=== PATIENT | male | born 1965 | race Caucasian/White ===

== ENCOUNTER 2024-01-05 13:00 | Day surgery (SDC) | payer OTHER, SELFPAY ==
[2024-01-04 21:47] VITALS: BP 120/70
[2024-01-04 22:10] LABS: % Basophils 0.6 % (0-2); % Eosinophils 3.5 % (0-6); % Immature Granulocytes 0.4 % (0-0.5); % Lymphocytes 20.6 % (20.5-51.1); % Monocytes 8.8 % (1.7-9.3); % Neutrophils 66.1 % (42.2-75.2); Absolute Basophils 0.1 10^3/uL (0-0.2); Absolute Eosinophils 0.5 10^3/uL (0-0.7); Absolute Immature Granulocytes 0.1 10^3/uL (0-0.05); Absolute Lymphocytes 2.9 10^3/uL (1.2-3.4); Absolute Monocytes 1.2 10^3/uL (0.1-0.6); Absolute Neutrophils 9.2 10^3/uL (1.4-6.5); Hematocrit 40.6 % (39.0-52.0); Hemoglobin 14.1 g/dL (13.0-18.0); Mean Corp Hgb Conc. 34.7 g/dL (33.0-37.0); Mean Corpuscular Hgb 30.3 pg (27.0-31.0); Mean Corpuscular Volume 87.1 fL (80.0-94.0); Mean Platelet Volume 10.2 fL (7.4-10.4); Nucleated Red Blood Cells % 0 % (-); Platelet Count 203 10^3/uL (130-400); Red Blood Cell Count 4.66 10^6/uL (4.70-6.10); Red Cell Dist. Width 12.9 % (11.5-14.5); White Blood Cell Count 13.9 10^3/uL (4.8-10.8)
[2024-01-04 22:17] LABS: Urine Albumin Negative (Neg - Trace); Urine Bilirubin Negative (Negative); Urine Character Clear (Clear); Urine Color Yellow; Urine Glucose Negative (Negative); Urine Ketone Negative (Negative); Urine Leukocyte Negative (Negative); Urine Nitrite Negative (Negative); Urine Occult Blood 2+ (Negative); Urine Specific Gravity 1.025 (<1.030); Urine Urobilinogen Negative (Neg - 1+)
[2024-01-04 22:30] LABS: ALT (SGPT) 18 U/L (0-50); AST (SGOT) 22 U/L (17-59); Albumin 4.4 g/dl (3.5-5.0); Alkaline Phosphatase 57 U/L (38-126); Blood Urea Nitrogen 27 mg/dl (9-20); Calcium 9.6 mg/dl (8.4-10.2); Carbon Dioxide 27 mmol/L (22-30); Chloride 104 mmol/L (98-107); Glucose 114 mg/dl (70-99); Lipase 278 U/L (23-300); Potassium 4.2 mmol/L (3.5-5.1); Sodium 140 mmol/L (135-145); Total Bilirubin 0.4 mg/dl (0.2-1.3); Total Protein 7.5 g/dl (6.3-8.2); eGFR > 60.00
[2024-01-04 22:50] LABS: Urine White Cell 0-2 /HPF (0-5)
--- NOTE | 2024-01-04 22:57 | ED.GENMED ---
History of Present Illness
<MAZIN Lopez - Last Filed: 01/04/24 23:20>
General
Chief Complaint: Abdominal Pain
Source: patient and records
Exam Limitations: none
Time Seen by Provider: 01/04/24 22:47
Travel History
Have you had any contact with someone who has COVID-19?: No
Do you have any symptoms of coronavirus? Fever > 100 degrees, chills, cough, shortness of breath, sore throat, loss of taste or smell, muscle aches, or headache?: No
History of Present Illness
History of Present Illness:
58 yea rold male with hx of HLD, sleep apnea, SBO, s/p gastric sleeve 10/05 who presents with sudden onset of RUQ abdominal pain that began today at 1900. Pt states he had his usual nighttime snack of doritos, cheetos, avocado when he had sudden
onset of tightening, squeezing, nonradiating pain. Pain has been waxing and waning and is currently at 6/10. Reports deep breaths exacerbate the pain. States he has not felt this pain before and feels different from his SBO pain in the past. Has not
taken anything for the pain. States he has been stooling fine with hard formed stool since his gastric sleeve surgery. He will use miralax every other day to help him. He takes Ursodiol s/p gastric sleeve surgery. Denies n/v/d, fevers/chills, chest
pain, SOB, flank pain, dysuria, hematuria. No recent travel. No sick contacts. Denies tobacco, etoh, or illicit drug use.
Past History
<MAZIN Lopez - Last Filed: 01/04/24 23:20>
Past History
ED Past Medical History: HTN, Hypercholesterolemia and Other (SBO)
Social History
Tobacco: Former smoker
Alcohol: Occasional
Drug: None
Personal:
Living: with family
Employment: Employed
Family History
Family History: Hypertension
Review of Systems
<MAZIN Lopez - Last Filed: 01/04/24 23:20>
Review of Systems
Allergies reviewed?: Yes
All Other Systems: ROS reviewed and negative except as documented in HPI and ROS
Constitutional: Reports no symptoms
EENT: Reports no symptoms
Respiratory: Reports no symptoms
Cardiac: Reports no symptoms
ABD/GI: Reports abdominal pain
: Reports no symptoms
Musculoskeletal: Reports no symptoms
Skin: Reports no symptoms
Neurological: Reports no symptoms
Phy Exam
<MAZIN Lopez - Last Filed: 01/04/24 23:20>
General Physical Exam
General Presentation: well appearing and no apparent distress
General age: appears stated age
General Skin: warm and dry
General Habitus: obese
General Mental: alert
General Hydration: appears well hydrated
Pulmonary Exam
Pulmonary Exam: lungs clear, no respiratory distress, no rales, no crackles, no rhonchi, no wheezing and no cough
Gastrointestinal Exam
Gastrointestinal Exam: normal bowel sounds, soft, no pulsatile mass and non distended
Palpation: right upper quadrant: Moderate tenderness
Neurological Exam
Neurological Exam: alert and oriented x3
Musculoskeletal Exam
Musculoskeletal Exam: no edema
Skin Exam
Skin Exam: normal color and warm/dry
Psychiatric Exam
Psychiatric Exam: normal mood/affect
Course
<MAZIN Lopez - Last Filed: 01/04/24 23:20>
Orders/Labs/Results
Orders:
Orders
01/04/24 22:01
Complete Blood Count/With Diff Urgent
Comprehensive Metabolic Panel Urgent
Lipase Urgent
UA Reflex to Culture [Urinalysis Reflex To Culture] Urgent
Date Specimen was Collected: 01/04/24
Time Specimen was Collected: 21:59
Urine Microscopic Reflex Cult Urgent
01/04/24 23:17
0.9% Sodium Chloride 1000 ml [Nss] 1,000 ml IV BOLUS
HYDROmorphone [Dilaudid] 1 mg IV NOW STA
01/05/24 00:00
CT Abd/pelvis W Iv Cont Urgent
Reason For Exam: acute RUQ to RLQ pain
Abnormal Lab Results
01/04/24
22:01
WBC 13.9 H 10^3/uL
(4.8-10.8)
RBC 4.66 L 10^6/uL
(4.70-6.10)
Abs Immat Gran (auto) 0.1 H 10^3/uL
(0-0.05)
Absolute Neuts (auto) 9.2 H 10^3/uL
(1.4-6.5)
Absolute Monos (auto) 1.2 H 10^3/uL
(0.1-0.6)
BUN 27 H mg/dl
(9-20)
Glucose 114 H mg/dl
(70-99)
Ur Occult Blood Reflex 2+ A
(Negative)
Urine RBC 7-10 A /HPF
(0-2)
01/04/24 22:01
01/04/24 22:01
Vital Signs
Initial and Last Documented VS:
Initial Vital Signs
Temp Pulse Resp BP Pulse Ox
98.2 F 70 24 120/70 97
01/04/24 21:47 01/04/24 21:47 01/04/24 21:47 01/04/24 21:47 01/04/24 21:47
Last Documented Vital Signs
Temp Pulse Resp BP Pulse Ox
98.2 F 70 24 120/70 97
01/04/24 21:47 01/04/24 21:47 01/04/24 21:47 01/04/24 21:47 01/04/24 21:47
<Nehal Pimentel, DO - Last Filed: 01/05/24 01:11>
Orders/Labs/Results
Orders:
Orders
01/04/24 22:01
Complete Blood Count/With Diff Urgent
Comprehensive Metabolic Panel Urgent
Lipase Urgent
UA Reflex to Culture [Urinalysis Reflex To Culture] Urgent
Date Specimen was Collected: 01/04/24
Time Specimen was Collected: 21:59
Urine Microscopic Reflex Cult Urgent
01/04/24 23:17
0.9% Sodium Chloride 1000 ml [Nss] 1,000 ml IV BOLUS
HYDROmorphone [Dilaudid] 1 mg IV NOW STA
01/05/24 00:00
CT Abd/pelvis W Iv Cont Urgent
Reason For Exam: acute RUQ to RLQ pain
Abnormal Lab Results
01/04/24
22:01
WBC 13.9 H 10^3/uL
(4.8-10.8)
RBC 4.66 L 10^6/uL
(4.70-6.10)
Abs Immat Gran (auto) 0.1 H 10^3/uL
(0-0.05)
Absolute Neuts (auto) 9.2 H 10^3/uL
(1.4-6.5)
Absolute Monos (auto) 1.2 H 10^3/uL
(0.1-0.6)
BUN 27 H mg/dl
(9-20)
Glucose 114 H mg/dl
(70-99)
Ur Occult Blood Reflex 2+ A
(Negative)
Urine RBC 7-10 A /HPF
(0-2)
01/04/24 22:01
01/04/24 22:01
Vital Signs
Initial and Last Documented VS:
Initial Vital Signs
Temp Pulse Resp BP Pulse Ox
98.2 F 70 24 120/70 97
01/04/24 21:47 01/04/24 21:47 01/04/24 21:47 01/04/24 21:47 01/04/24 21:47
Last Documented Vital Signs
Temp Pulse Resp BP Pulse Ox
98.2 F 70 24 120/70 97
01/04/24 21:47 01/04/24 21:47 01/04/24 21:47 01/04/24 21:47 01/04/24 21:47
<MAZIN Lopez - Last Filed: 01/04/24 23:20>
MDM/Problems Addressed
Differential Diagnosis Includes:
biliary colic, acute cholecystitis, acute appendicitis, nephrolithiasis
MDM/Problems Addressed:
58 year old male who presents with sudden onset of RUQ abdominal pain that began at 1900 today.
Chronic conditions affecting care: HTN and Other (HLD)
<MAZIN Lopez - Last Filed: 01/04/24 23:20>
*Critical Care Note
Total Time (30-74mins, 75-104mins- exclusive of procedures): Not Applicable
<Nehal Pimentel DO - Last Filed: 01/05/24 01:11>
*Radiology
Radiology exam reviewed: radiology read reviewed (The abdomen pelvis shows acute appendicitis. No abscess nor free fluid.)
*Pulse Oximetry
Patient hypoxic: no
ED Attending Note
<MAZIN Lopez - Last Filed: 01/04/24 23:20>
-
Portions of this chart may have been created with voice recognition software.� Occasional wrong word or��sound alike� substitutions may have occurred due to the inherent limitations of voice recognition software.
<Nehal Pimentel DO - Last Filed: 01/05/24 01:11>
ED Attending Note
Patient seen and examined by attending physician: Yes
I performed the substantive portion of visit, reviewed & personally made and approve the management plan that is documented in note by myself or SUSANA.: Yes
I performed a history and physical exam of patient and discussed management with resident, I reviewed resident's note and agree with documented findings and plan of care.: Yes
ED Attending Note:
This is a 58-year-old gentleman who has history of recurrent small bowel obstructions at distal ileum with no definitive cause. Last episode of small bowel obstruction was 2017. Since then he has avoided popcorn and states bowel obstructions have
resolved. More recently he underwent gastric sleeve procedure September 2023 and thus far has lost 50 pounds.
Tonight while eating his usual evening snack of Cheerios and avocado he developed somewhat abrupt onset of right upper quadrant/right lateral upper abdominal pain that has been persistent since approximately 7 PM. Abdominal pain is moderate to
severe in nature, worse with movement, improves when sitting or lying still. He denies back pain or flank pain, denies chest pain, no nausea nor vomiting, no diarrhea or constipation. He denies dysuria and urgency nor hematuria. No fever nor
chills. Last bowel movement was yesterday.
Right-sided abdominal pain feels very different from previous episodes of small bowel obstruction.
He has not taken anything for discomfort.
GENERAL: 58-year-old gentleman appears his stated age, awake and alert, pleasant, appears mildly uncomfortable related to pain. is accompanying.
EYE: anicteric
NECK: Supple, nontender, no meningismus, no significant adenopathy.
ENT: oral mucosa is moist. No rhinorrhea.
CARDIAC: Regular rate and rhythm. no murmur.
LUNGS: Clear breath sounds bilaterally, no acute respiratory distress, no wheezes/rales/rhonchi
ABDOMEN: Soft, nondistended, exquisite tenderness right upper lateral quadrant, right lateral mid abdomen as well as mild tenderness right lower quadrant. There is moderate local guarding right upper lateral to right mid lateral abdomen, mild
rebound, no rigidity. no cvat. normoactive BS. No palpable masses.
NEUROLOGICAL: Alert and oriented x3, no focal neuro deficits. Gait is steady.
SKIN: Warm and dry, normal color, skin intact. No rash.
MUSCULOSKELETAL: No C/C/E. peripheral pulses are full and equal b/l. No palpable tenderness.
PSYCH: Normal and appropriate interaction.
Concern for acute cholecystitis, acute appendicitis, renal colic/ureteric stone, less likely pyelonephritis, other consideration is recurrent small bowel obstruction.
Will medicate for pain, initiate IV fluids and plan for CT abdomen pelvis with IV contrast.
Labs thus far reveal mildly elevated white blood cell count of 13.9.
Mild prerenal azotemia with BUN of 27, normal creatinine.
LFTs, lipase within normal limits.
Urinalysis dips positive for +2 blood. 7-10 RBCs otherwise unremarkable.
01/05/2024 0104 AM
CAT scan shows acute appendicitis without evidence of perforation. No free air nor abscess.
Case discussed with general surgery, Dr. Sullivan, will admit to his service. IV Zosyn initiated.
Will keep n.p.o. for plan for OR in the a.m.
Discharge Plan
Departure
Patient Disposition: Admit
Date of Disposition: 01/05/24
Time of Disposition: 01:10
Admit to doctor: Nate
Presentation/result/management discussed w/ accepting MD/DO: gen surgery
Condition: Fair
Discharge Problem:
Acute appendicitis
Prescriptions:
No Action
multivitamin [Daily Multiple] 1 EACH tablet
1 ea PO DAILY
cyanocobalamin (vitamin B-12) 100 MCG tablet
1,000 mcg PO DAILY
Patient Comments:
Pt unsure of dose, this was previously entered dose, states 'that's probably it'.
aspirin 81 MG tablet,chewable
81 mg PO DAILY
metronidazole 500 MG tablet
500 mg PO TID Qty: 18 0RF
levofloxacin 500 MG tablet
500 mg PO DAILY Qty: 6 0RF
Saccharomyces boulardii 250 MG capsule
250 mg PO BID Qty: 20 0RF
Rx Instructions:
Please take to combat GI upset from antibiotics.
cyclobenzaprine 10 MG tablet
10 mg PO TID PRN (Reason: pain/spasm) Qty: 15 0RF
Referrals:
Jovanni Santiago Jr., DO [Family Provider] -
Interventions
Interventions:
*Risk Screen - Suicide Last Done: 01/04/24 21:47
*Neglect/Abuse Screening Last Done: 01/04/24 21:47
ED- Fall Risk Assessment Last Done: 01/04/24 22:00
SL-Vdmkka-Mssmhfitqb Assessment Last Done: 01/04/24 22:00
Discharge Date and Time
Print Language: IRISH
[2024-01-04] MEDS: DILAUDID 1 MG IV (23:22)
[2024-01-04] MEDS: NSS 1000 IV (23:23)
[2024-01-05] VITALS (13 sets, daily range): BP systolic 113–148; BP diastolic 71–113; BMI 31.5; BMI 30.5
[2024-01-05] MEDS: ZOSYN 100 IV (01:15)
--- NOTE | 2024-01-05 01:46 | HPS.HSE ---
Family Physician
-
Family Physician: Jovanni Santiago Jr.
Chief Complaint
-
'abdomen pain'
History of Present Illness
58 year old patient with PMH of HTN, Hypercholesterolemia, SBO, Kidney stones, Sleep apnea, presents to ER with Right sided abdomen pain started at approximately 7 PM. States he had a busy day today, came home ate his regular snacks which is doritos
and cheetos and noticed 'muscle pull' mars pain at R side of the abdomen, which sustained and gotten worse as time went by. States pain is predominantly on Right side of the abdomen without radiating. Pain wasn't relieved with deep breaths or
walking around. states he had chills without fever at home, Afebrile in ER. Denies any shortness of breath, chest pain, Denies nausea, vomiting. LBM 5/25, voiding without any difficulties, no blood noted in urine or stool. Hx of Gastric sleeve
09/2023
Medical History
Past Medical History
Past Medical History: Reports HTN and Other
Additional Past Medical History:
kidney stones
Past Surgical History: Reports Other (gastric sleeve)
Social History
Tobacco: Non-smoker
Alcohol: None
Drug: None
Personal:
Living: With Family
Family History
Family History: Not pertinent
Allergies / Home Medications
Allergies reflects when Allergies were last updated in [facility] ([facility]
Home Medications with original date entered in [facility] ([facility])
Allergy/Medication List:
Allergies
Allergy/AdvReac Type Severity Reaction Status Date / Time
No Known Drug Allergies Allergy NONE Verified 01/04/24 21:49
Home Medications
multivitamin (Daily Multiple tablet) 1 ea PO DAILY 12/08/16
cyclobenzaprine 10 mg tablet 10 mg PO TID PRN pain/spasm #15 tabs 12/14/18
lisinopril 5 mg tablet 5 mg PO DAILY 01/05/24
ursodiol 300 mg capsule 300 mg PO BID 01/05/24
Review of Systems
-
History Source: Patient
A 12 point ROS was completed and negative except as noted: Yes
Constitutional: Reports No Symptoms
EENT: Reports No Symptoms
Respiratory: Reports No Symptoms
Cardiac: Reports No Symptoms
Abdomen/GI: Reports Abdominal Pain
: Reports No Symptoms
Musculoskeletal: Reports No Symptoms
Skin: Reports No Symptoms
Neurological: Reports No Symptoms
Endocrine: Reports No Symptoms
Hematologic/Lymphatic: Reports No Symptoms
Psych: Reports No Symptoms
Physical Exam
Vital Signs
Vital Signs
Temp Pulse Resp BP Pulse Ox
98.2 F 77 18 115/76 97
01/04/24 21:47 01/05/24 01:14 01/05/24 01:14 01/05/24 01:14 01/05/24 01:14
Physical Exam
General: Well Developed, Well Nourished, No Apparent Distress and Conversant
HEENT: NormoCephalic, Moist mucous membranes and Atraumatic
Respiratory: Clear and Non Labored Respirations
Cardiac: S1/S2 and Regular Rhythm
Breast: Deferred by me
GI: Soft, Non Distended, Normal Bowel Sounds and Tender (RUQ)
Rectal: Deferred by Provider
Genito-urinary: Deferred by me
Musculoskeletal: No Clubbing, No Cyanosis and No Edema
Skin: Warm and Dry
Neuro: Awake, AO x 3 and Nonfocal/grossly intact
Hematologic/Lymphatic: No Lymphadenopathy
Psych: Calm
Laboratory Results
-
01/04/24 22:01
01/04/24 22:01
Laboratory Results
Total Bilirubin 0.4 mg/dl (0.2-1.3) 01/04/24 22:01
AST 22 U/L (17-59) 05/25/24 22:01
ALT 18 U/L (0-50) 01/04/24 22:01
Alkaline Phosphatase 57 U/L (38-126) 01/04/24 22:01
Lipase 278 U/L (23-300) 01/04/24 22:01
Data Reviewed
-
Diagnostic Radiology: Report Reviewed by me
Lab Data: Labs Reviewed by me
Impression/Plan
-
58 y/o with Right sided adomen pain
# Abdomen pain, Likely due to Acute Appendicitis
-WBC 13.5
-CAT scan shows acute appendicitis without evidence of perforation. No free air nor abscess.
-Continue IV Zosyn
-Continue IV Analgesics
-continue IV Zofran
-NPO
-Admit to Dr. Sullivan
-labs in AM
# Elevated BUN likely due to Dehydration
-received 1L NSS
-labs in AM
#Essential Hypertension
-Continue Lisinopril
# Hx of gall stones
-continue Ursodiol
#Hx of Sleep apnea
-uses own bipap
DVT prophylaxis: SCD's
Full code
[2024-01-05] MEDS: TORADOL 10 MG IV ×2 (03:16→15:30)
--- NOTE | 2024-01-05 03:39 | PTCARENOTE ---
Pt. coming from ED to [facility] at 0230 via stretcher, able to walk to room bed with steady gait. Pt. A&Ox3, in NAD, states 5/10 abd pain, given pain medication- see MAR, even and unlabored breathing on RA, home CPAP set up with RT, and VSS. Pt.
oriented to room and hospital policies, bed locked and in lowest position, side rails in place, call light within reach, belongings within reach, and questions/concerns addressed at time of assessment.
[2024-01-05] MEDS: DILAUDID 1 MG IV (04:07)
[2024-01-05] MEDS: ZOFRAN 4 MG IV (04:07)
[2024-01-05] MEDS: FLUSH (NSS) 2 FLUSH IV (04:09)
[2024-01-05] MEDS: ZOSYN 50 IV ×2 (05:41→14:09)
[2024-01-05] MEDS: FLUSH (NSS) 1 FLUSH IV (05:41)
[2024-01-05 06:19] LABS: Hematocrit 40.3 % (39.0-52.0); Hemoglobin 13.6 g/dL (13.0-18.0); Mean Corp Hgb Conc. 33.7 g/dL (33.0-37.0); Mean Corpuscular Hgb 30.5 pg (27.0-31.0); Mean Corpuscular Volume 90.4 fL (80.0-94.0); Mean Platelet Volume 10.8 fL (7.4-10.4); Platelet Count 155 10^3/uL (130-400); Red Blood Cell Count 4.46 10^6/uL (4.70-6.10); Red Cell Dist. Width 12.7 % (11.5-14.5); White Blood Cell Count 9.5 10^3/uL (4.8-10.8)
[2024-01-05 06:40] LABS: Blood Urea Nitrogen 22 mg/dl (9-20); Calcium 9.1 mg/dl (8.4-10.2); Carbon Dioxide 28 mmol/L (22-30); Chloride 105 mmol/L (98-107); Estimated Creatinine Clearance 81 ml/min; Glucose 85 mg/dl (70-99); Potassium 4.2 mmol/L (3.5-5.1); Sodium 140 mmol/L (135-145); eGFR > 60.00
[2024-01-05] MEDS: ACTIGALL 300 MG PO (08:46)
--- NOTE | 2024-01-05 13:10 | OR.RPT ---
Operative Report
Operative Report
Primary Surgeon: Nate
Pre-op Diagnosis: Acute appendicitis
Post-op Diagnosis: Same
Procedure Performed: Laparoscopic appendectomy
Anesthesia Type: GETA
Specimen / Cultures: Appendix
Estimated Blood Loss: 15cc
Complications: None immediate
Operative Findings: Mildly inflamed appendix without evidence of pus or perforation, no free fluid in the pelvis. Minor bleed from staple line controlled with titanium clips.
Date of Surgery: 01/05/24
Indications: This 58M developed right lower quadrant abdominal pain and on workup was found to have acute appendicitis. Laparoscopic appendectomy was elected.
Description of procedure: The patient was placed on the operating table in the supine position. General anesthesia was induced. A time-out was completed verifying correct patient, procedure, site, positioning, and special equipment prior to
beginning this procedure. An orogastric tube was placed. The abdomen was prepped and draped in the usual sterile fashion. A stab incision was made in left upper quadrant and the Veress needle was inserted. Proper position was confirmed by aspiration
and saline meniscus test. The abdomen was insufflated with carbon dioxide to a pressure of 12 mmHg. The patient tolerated insufflation well.
A 5mm optical trocar was then inserted at the left lower quadrant. The laparoscope was inserted and the abdomen inspected. No injuries from initial trocar placement or Veress needle insertion were noted. Additional trocars were then inserted in the
following locations: a 12-mm trocar at the umbilicus and a 5-mm trocar midline in the suprapubic space. The abdomen was inspected and no abnormalities were found. The table was placed in the Trendelenburg position with the right side up. The tip of
the appendix was in retrocecal position, it was gently swept down toward the feet and gently grasped with an atraumatic grasper and retracted toward the patient�s feet and abdominal wall. This maneuver exposed the appendiceal blood supply which was
controlled with the Ligasure device. Following this, a laparoscopic linear cutting stapler with a 45mm massey load was deployed and used to transect the appendix at its base. The appendix was placed in an endoscopic retrieval bag, removed through the
umbilical port, and passed off the table as a specimen.
We then turned our attention to the staple line, which was had a minor pulsatile bleed. This was controlled with titanium clips. The pelvis was inspected and no free fluid was identified. The umbilical trocar site was closed at the fascial level
laparoscopically with 2-0 PDS under direct vision. Secondary trocars were removed under direct vision and noted to be hemostatic. The laparoscope was withdrawn and the abdomen was allowed to collapse. The skin was closed with subcuticular sutures of
4-0 monocryl and topical skin adhesive. The orogastric tube was removed.
The patient tolerated the procedure well and was taken to the postanesthesia care unit in stable condition.
--- NOTE | 2024-01-05 13:11 | W.DS.TRANS ---
DC Summary - Survey Coordinator
-
Discharge Instructions:
Discharge Diagnosis/Procedures Acute appendicitis
Diet No restrictions
Activity No strenuous activity
Driving Restrictions No driving for 24 hours
Bathing Restrictions OK to Shower
Wound Care Allow skin glue to flake off on its own.
Instructions: Appendectomy, Laparoscopic Surgery (DC)
Stand-Alone Forms:
Changes to Home Medications: No
Discharge Medications:
DC Medications w/original date entered in [employer]
multivitamin (Daily Multiple tablet) 1 ea PO DAILY 12/08/16
cyclobenzaprine 10 mg tablet 10 mg PO TID PRN pain/spasm #15 tabs 12/14/18
lisinopril 5 mg tablet 5 mg PO DAILY 01/05/24
oxycodone 5 mg tablet 5 - 10 mg (1 - 2 x 5 mg) PO Q4HPRN PRN moderate to severe pain #10 tabs 01/05/24
ursodiol 300 mg capsule 300 mg PO BID 01/05/24
Home Medication Changes
Pending Results: No
[2024-01-05] MEDS: DILAUDID 0.25 MG IV (13:17)
--- NOTE | 2024-01-05 14:10 | PTCARENOTE ---
Pt received from the PACU via bed. Transport was without incident. Pt is AAOx3, HRR, lungs are clear, resp. easy, pulse ox 98%RA. Abd with 4 Lap sites well approximated w/ surgical glue, no drainage noted. VSS, Pt is afebrile. Pt denies pain or
nausea at present. Pt instructed on plan of care. Pt verbalized understanding of instructions. Call escobar is within reach.
--- NOTE | 2024-01-05 19:03 | CM ---
met with patient at bedside. he is adm with abd pain and had a lap appy.he lives with his in house with 1 [address],his bed and bath is on the second level.he amb i and is i with his adl's/he has no dme.dr self is his pcp and he uses [facility], [place], [facility].he has nover had a vn or been to [facility] rehab.he is stable to dc home with no needs.
== END 2024-01-05 16:45 | disposition home or self-care (01) ==
LOC: SDS 13:00
PROVIDERS: Nurse Practitioner Gerontology; ATTENDING PHYSICIAN Surgery; EMERGENCY PHYSICIAN Emergency Medicine; FAMILY PHYSICIAN Family Medicine
DX: K35.80 Unspecified acute appendicitis (principal)
CPT/HCPCS: 44970; 88304; 74177; 80048; 80053; 81003; 81015; 83690; 85025; 85027; 96361; 96374; 96375; 99285; Q9967